=== PATIENT | female | born 1960 | race Caucasian/White ===

== ENCOUNTER 2018-01-08 11:36 | Day surgery (SDC) | payer SELFPAY ==
[~2018-01-08] VITALS: Ht 167.6 cm; Wt 102.1 kg
[~2018-01-08 11:36] MED LIST: CENTRUM SILVER1 TA1 PO; LOSARTAN POT100 MG PO
[2018-01-08 15:50] VITALS: BP 127/62
== END 2018-01-08 16:00 | disposition home or self-care (01) | DRG 392 ==
LOC: ENDO 11:36
PROVIDERS: ATTEND Internal Medicine Gastroenterology
PROC: 0DBN8ZX Excision of Sigmoid Colon, Via Natural or Artificial Opening Endoscopic, Diagnostic (ICD-10-PCS; principal; 2018-01-08)
PROC: 0DBE8ZX Excision of Large Intestine, Via Natural or Artificial Opening Endoscopic, Diagnostic (ICD-10-PCS; 2018-01-08)
DX: K52.831 Collagenous colitis (principal); D12.5 Benign neoplasm of sigmoid colon; K64.8 Other hemorrhoids; K64.4 Residual hemorrhoidal skin tags; I10 Essential (primary) hypertension